=== PATIENT | male | born 1970 | race Caucasian/White ===

== ENCOUNTER 2022-06-19 07:15 | Day surgery (SDC) | payer OTHER ==
[~2022-06-19] VITALS: Ht 177.8 cm; Wt 94.6 kg
[~2022-06-19 07:15] MED LIST: ASPIRIN E.C. 8181 MG PO; NO HOME MEDICATIONS
[2022-06-19 07:45] VITALS: BP 113/83; PULSE 60; TEMP 97.6
[2022-06-19] MEDS ORDERED: ZOCOR 20MG20 MG (08:08)
[2022-06-19 08:50] VITALS: BP 97/58; PULSE 52; TEMP 97.6
[2022-06-19 09:05] VITALS: BP 95/71; PULSE 52
[2022-06-19 09:15] VITALS: BP 94/63; PULSE 54
--- NOTE | 2022-06-19 09:20 | NUR ---
0850 RETURNS TO ROOM 5 PER CART. AWAKE, ALERT. AMBULATES TO RECLINER WITH STANDBY ASSIST. RESP UNLABORED. DENIES NAUSEA OR AB PAIN. VITAL SIGNS OBTAINED. CALL LIGHT AT SIDE. IN ROOM 0859 DR. HARDIN HERE TO VISIT WITH PATIENT 0900 DISCHARGE INSTRUCTIONS REVIEWED. PATIENT VERBALIZES UNDERSTANDING. COPY PROVIDED IN DISCHARGE FOLDER. 0905 TOLERATES PO SPRITE AND MUFFIN WITHOUT NAUSEA/ 09 DRESSES SELF
== END 2022-06-19 09:22 | disposition home or self-care (01) ==
LOC: SDCO 07:15
DX: Z12.11 Encounter for screening for malignant neoplasm of colon (principal); Z87.891 Personal history of nicotine dependence
CPT/HCPCS: J2704; J3010; J7120